=== PATIENT | female | born 1985 | race Caucasian/White ===

== ENCOUNTER → 2017-03-11 | Outpatient (CLI) | payer OTHER ==
[~2017-03-11] MED LIST: DICLEGIS; MOTRIN 600600 MG/TAB PO; NORCO 325 MG-51 TAB PO; PERCOCET 325 MG1 TA2 PO; PRENATAL1 TA7 PO; ZANTAC 150MG T150 MG PO
== END ==
LOC: COL.RAD 07:40
DX: R10.31 Right lower quadrant pain (principal)
CPT/HCPCS: Q9967

== ENCOUNTER → 2017-07-08 | Outpatient (CLI) | payer OTHER ==
[2017-07-08 15:19] LABS: BASO # 0.1 (0.0-0.2); BASO % 0.5 % (0.0-2.0); EOS # 0.1 (0.0-0.7); EOS % 0.8 % (0-4.0); GRAN # 5.8 (1.4-6.5); GRAN % 58.4 % (42.2-75.2); HEMATOCRIT 41.1 % (37.0-47.0); HEMOGLOBIN 13.5 g/dl (12.5-16.0); LYMPH # 3.5 (1.2-3.4); MEAN CELL VOLUME 87 fl (80.0-100.0); MEAN CORPUSCULAR HEMOGLOBIN 28 pg (27.0-31.0); MEAN CORPUSCULAR HGB CONC 33 g/dl (33.0-37.0); MEAN PLATELET VOLUME 10.7 fl (7.4-10.4); MONO # 0.5 (0.1-0.6); MONO % 5.1 % (1.7-9.3); PLATELET COUNT 309 K/mm3 (130-400); RED BLOOD COUNT 4.75 M/mm3 (4.10-5.30); REDCELL DISTRIBUTION WIDTH-CV 13.8 % (11.5-14.5)
[2017-07-08 15:44] LABS: ALBUMIN 4.7 gm/dL (3.5-5.0); BILIRUBIN,TOTAL 0.4 mg/dL (0.0-1.0); CALCIUM 9.6 mg/dL (8.4-10.2); CHOLESTEROL RISK RATIO 2.8; CREATININE, serum 0.92 mg/dL (0.52-1.25); POTASSIUM 4.2 mmol/L (3.4-5.0); TOTAL PROTEIN 7.6 gm/dL (6.4-8.2)
[2017-07-08 15:54] LABS: TSH w REFLEX 1.31 uIU/mL (0.465-4.680)
== END ==
LOC: COL.LAB 11:10
PROVIDERS: Family Medicine
DX: Z00.00 Encounter for general adult medical examination without abnormal findings (principal); Z13.220 Encounter for screening for lipoid disorders; Z13.29 Encounter for screening for other suspected endocrine disorder

== ENCOUNTER → 2018-04-13 | Outpatient (CLI) | payer OTHER ==
[2018-04-13 13:40] LABS: BASO # 0.1 (0.0-0.2); BASO % 0.6 % (0.0-2.0); EOS # 0.2 (0.0-0.7); EOS % 1.7 % (0-4.0); GRAN # 5.7 (1.4-6.5); GRAN % 64.2 % (42.2-75.2); HEMATOCRIT 40.6 % (37.0-47.0); HEMOGLOBIN 12.6 g/dl (12.5-16.0); LYMPH # 2.4 (1.2-3.4); LYMPH % 26.5 % (20.0-51.0); MEAN CELL VOLUME 77 fl (80.0-100.0); MEAN CORPUSCULAR HEMOGLOBIN 24 pg (27.0-31.0); MEAN CORPUSCULAR HGB CONC 31 g/dl (33.0-37.0); MEAN PLATELET VOLUME 10.6 fl (7.4-10.4); MONO # 0.6 (0.1-0.6); MONO % 6.8 % (1.7-9.3); PLATELET COUNT 267 K/mm3 (130-400); REDCELL DISTRIBUTION WIDTH-CV 16.3 % (11.5-14.5)
[2018-04-13 13:54] LABS: ALBUMIN 4.1 gm/dL (3.5-5.0); BILIRUBIN,TOTAL 0.3 mg/dL (0.0-1.0); CALCIUM 9.1 mg/dL (8.4-10.2); CREATININE, serum 0.73 mg/dL (0.52-1.25); POTASSIUM 4.8 mmol/L (3.4-5.0)
[2018-04-13 13:55] LABS: C-REACTIVE PROTEIN 0.5 mg/dL (0.0-0.9)
[2018-04-13 14:21] LABS: ERYTHROCYTE SEDIMENTATION RATE 2 mm/hr (0-20)
== END ==
LOC: ZCOL.LAB 13:30
PROVIDERS: Family Medicine
DX: R53.83 Other fatigue (principal)

== ENCOUNTER 2021-02-12 03:42 | Observation (INO) | payer BC ==
[2021-02-12] VITALS (8 sets, daily range): BP systolic 101–117; BP diastolic 51–57; PULSE 55–70; TEMP 98–98.3
[~2021-02-12] VITALS: Ht 162.6 cm; Wt 77.3 kg
[2021-02-12 04:09] LABS: BASO # 0.1 (0.0-0.2); BASO % 0.4 % (0.0-2.0); EOS % 0.2 % (0-4.0); GRAN # 10.6 (1.4-6.5); GRAN % 81.8 % (42.2-75.2); HEMATOCRIT 38.6 % (37.0-47.0); HEMOGLOBIN 12.4 g/dl (12.5-16.0); LYMPH # 1.5 (1.2-3.4); LYMPH % 11.3 % (20.0-51.0); MEAN CELL VOLUME 87 fl (80.0-100.0); MEAN CORPUSCULAR HEMOGLOBIN 28 pg (27.0-31.0); MEAN CORPUSCULAR HGB CONC 32 g/dl (33.0-37.0); MONO # 0.8 (0.1-0.6); MONO % 5.9 % (1.7-9.3); PLATELET COUNT 263 K/mm3 (130-400); RED BLOOD COUNT 4.44 M/mm3 (4.10-5.30); REDCELL DISTRIBUTION WIDTH-CV 14.2 % (11.5-14.5)
[2021-02-12 04:16] LABS: ALBUMIN 4.5 gm/dL (3.5-5.0); BILIRUBIN,TOTAL 0.4 mg/dL (0.0-1.0); C-REACTIVE PROTEIN 1.2 mg/dL (0.0-0.9); CREATININE, serum 0.76 (0.52-1.25); POTASSIUM 4.4 mmol/L (3.4-5.0); TOTAL PROTEIN 7.3 gm/dL (6.4-8.2)
[2021-02-12 04:21] LABS: COLLECTION METHOD CLEAN CATCH
[2021-02-12 04:31] LABS: MUCOUS Present /lpf; PH 8 (5-8); URINE APPEARANCE Hazy; URINE BACTERIA Rare /hpf; URINE BILIRUBIN Negative (NEGATIVE); URINE BLOOD Negative (NEGATIVE); URINE COLOR Yellow; URINE GLUCOSE Negative (NEGATIVE); URINE KETONE Trace (NEGATIVE); URINE LEUKOCYTE ESTERASE Trace (NEGATIVE); URINE NITRATE Negative (NEGATIVE); URINE PROTEIN(semi-quant) Negative (NEGATIVE); URINE RBC 0-2 /hpf; URINE UROBILINOGEN Negative (NEGATIVE)
[2021-02-12] MEDS ORDERED: NORCO 325 MG-51 TAB PO (11:24)
--- NOTE | 2021-02-12 12:09 | NUR ---
PATIENT TO ROOM BY STEPHEN CLAY VIA COT. PT DROWSEY, BUT WAKES TO STIMULATION. VSS. INCISION SITE X 3 COVERED BY BANDAIDS, NO DRAINAGE NOTED. AT BEDSIDE. DENIES PAIN OR NAUSEA. PATIENT ORIENTED TO ROOM.
--- NOTE | 2021-02-12 12:31 | NUR ---
INTAKE ASSESSMENT COMPLETED, LR RUNNING IN RIGHT AC IV BY GRAVITY. PT DROWSEY, BUT RESPONSES APPROPRIATELY. DENIES PAIN AND NAUSEA. VSS. AT BEDSIDE.
--- NOTE | 2021-02-12 14:05 | NUR ---
PATIENT SLEEPING. STATES PATIENT ATE CRACKERS BEFORE FALLING ASLEEP AND TOLERATED WELL. VS REMAIN STABLE AT THIS TIME.
== END 2021-02-12 17:57 | disposition home or self-care (01) ==
LOC: COL.ER 03:42 → SURG 06:08 → OB 12:58
PROVIDERS: Emergency Medicine; ADMIT Surgery
DX: K35.80 Unspecified acute appendicitis (principal); G43.909 Migraine, unspecified, not intractable, without status migrainosus; F32.9 Major depressive disorder, single episode, unspecified; F41.9 Anxiety disorder, unspecified; F43.10 Post-traumatic stress disorder, unspecified; Z79.899 Other long term (current) drug therapy
CPT/HCPCS: J1170; J1885; J2270; J2405; J2543; J7030; J7120; Q9967

== ENCOUNTER → 2023-03-24 | Outpatient (CLI) | payer BC | LOC: CANSCHCLI → COL.RAD 13:04 | DX: M17.11 Unilateral primary osteoarthritis, right knee (principal) | CPT/HCPCS: A9575; J0665; J3301; Q9967 ==